=== PATIENT | female | born 1970 | race Caucasian/White ===

== ENCOUNTER 2020-11-16 23:58 | Emergency (ER) | payer BC, SELFPAY ==
[2020-11-17 00:07] VITALS: BP 182/94; PULSE 86; RESP 20; TEMP 36.1; O2SAT 96; BMI 26.4
--- NOTE | 2020-11-17 00:15 | CTR_ITS ---
PROCEDURE INFORMATION: Exam: CT Abdomen And Pelvis Without Contrast Exam date and time: 11/17/2020 1:33 AM Age: 50 years old Clinical indication: Abdominal pain; Flank; Left; Prior surgery; Surgery date: 6+ months; Surgery type: Hyst; Additional info: L flank pain TECHNIQUE: Imaging protocol: Computed tomography of the abdomen and pelvis without contrast. Radiation optimization: All CT scans at this facility use at least one of these dose optimization techniques: automated exposure control; mA and/or kV adjustment per patient size (includes targeted exams where dose is matched to clinical indication); or iterative reconstruction. COMPARISON: No relevant prior studies available. RADIATION DOSE METRICS: Total DLP (mGy-cm): 1603.05 FINDINGS: Liver: Normal. No mass. Gallbladder and bile ducts: Numerous gallstones are present. There are no inflammatory changes present to suggest cholecystitis. Pancreas: Normal. No ductal dilation. Spleen: Normal. No splenomegaly. Adrenal glands: Normal. No mass. Kidneys and ureters: There is a 2.2 mm nonobstructing lower pole renal calculus seen on the right. There are some strandy and hazy opacities present within the left perinephric fascia possibly represents some mild inflammatory changes. Moderate hydronephrosis and hydroureter is seen on the left. There is a 3.8 mm partially obstructing distal left ureteral calculus at the level of the ureterovesical junction. Stomach and bowel: Unremarkable. No obstruction. No mucosal thickening. Appendix: The appendix is visualized and is normal in configuration. Intraperitoneal space: Unremarkable. No free air. No significant fluid collection. Vasculature: Unremarkable. No abdominal aortic aneurysm. Lymph nodes: Unremarkable. No enlarged lymph nodes. Urinary bladder: Unremarkable as visualized. Reproductive: Status post hysterectomy. Bones/joints: Severe loss of disc height and vacuum disc phenomenon seen at L5-S1 compatible with degenerative disc disease. Soft tissues: Unremarkable. CT/CT kidney stone [id number] IMPRESSION: 1. Partially obstructing 3.8 mm distal left ureteral calculus at the level of the ureterovesical junction. 2. Nonobstructing 2.2 mm renal calculus in the lower pole of the right kidney. 3. Numerous gallstones without evidence of cholecystitis Radiation Dose CTDIVOL = (mGy): DLP = 1603.05 (mGy-cm)
--- NOTE | 2020-11-17 00:15 | W.ED.ABDPA2 ---
HPI - Abdominal Pain General: Chief Complaint: Abdominal Pain Stated Complaint: back and abd pain Time Seen by Provider: 11/17/20 00:08 History of Present Illness: HPI narrative: 50-year-old female presents with sudden onset of left flank pain radiating into her belly at 10 PM. She is vomited 4 times. No fever. She is very uncomfortable on exam. She is has no history of prior kidney stone or belly surgery. No sick contacts. MD elicited complaint: flank pain Pertinent past history: none Onset (ago): hour(s) (2) Pain Consistency: constant Location: L flank Severity: severe Quality: stabbing Radiation: LLQ Migration to: no migration Exacerbating factors: nothing Relieving factors: nothing Associated Symptoms: Reports nausea and vomiting; Denies change in stool character, diarrhea, fever(s), hematochezia and hematuria Review of Systems Const: Denies: fever(s) Eyes: Denies: change in vision Card: Denies: chest pain or palpitations Resp: Denies: dyspnea, productive cough or non-productive cough GI: Reports: nausea and vomiting; Denies: diarrhea, change in stool character or hematochezia : Reports: flank pain; Denies: hematuria Neuro: Denies: headache(s) or confusion Physical Exam Const: GENERAL APPEARANCE: well developed, in distress and ill appearing ORIENTATION/CONSCIOUSNESS: Yes oriented to person, Yes oriented to place and Yes oriented to time HENMT: COMMON NORMALS: normocephalic, external ears normal and Normal external nose present HEAD & SCALP: normocephalic FACE & SINUS: normal facial exam NOSE: Normal external nose present and No nasal discharge present EXTERNAL EAR: Yes external ears normal Eye: COMMON NORMALS: Equal, round and reactive pupils present, EOMs intact bilaterally and conjunctivae normal EYELID: eyelids normal CONJUNCTIVA: Yes conjunctivae normal PUPIL: Yes Equal, round and reactive pupils present Neck/C-Spine: GENERAL: No tracheal deviation Chest: COMMONS NORMALS: normal inspection of the chest CHEST: No tenderness Resp: COMMON NORMALS: clear to auscultation bilaterally EFFORT & INSPECTION: No tachypneic, No respiratory distress, No retractions, No uses accessory muscles and No tracheal deviation AUSCULTATION: clear to auscultation bilaterally, no rhonchi, no wheezes and lung sounds not diminished Cardio: COMMON NORMALS: regular rate and regular rhythm RATE: regular rate RHYTHM: regular rhythm HEART SOUNDS: no murmurs PERIPHERAL PULSES: radial pulses present GI: INSPECTION: No abdominal distension AUSCULTATION: No Hyperactive bowel sounds present and No Hypoactive bowel sounds present PALPATION: No Guarding due to palpation present (GI) and No Rigid due to palpation PERCUSSION: no dullness to percussion and no tympanic to percussion : BLADDER/KIDNEY EXAM: Yes CVA tenderness on the left Back/Pelvis: GENERAL BACK: Yes CVA tenderness Neuro: SENSORIUM/ORIENTATION: Yes oriented to person, Yes oriented to place and Yes oriented to time Psych: COMMON NORMALS: mental status grossly normal Skin: COMMON NORMALS: no rashes or lesions noted GENERAL SKIN EXAM: no rashes or lesions noted Course ED course: 50-year-old female with significant left flank pain and vomiting. White blood cell count is 10.7. Potassium is down to 3.2. Bicarb level is 19. She is received a liter of fluid. CT renal stone protocol reveals a nearly 4 mm stone in her left UVJ producing hydronephrosis. It is partially obstructing. Renal function is normal. If her pain can be controllable, she will go home. Vital Signs: Vital signs: Vital Signs Temperature 96.9 F L 11/17/20 00:07 Pulse Rate 73 11/17/20 02:21 Respiratory Rate 18 11/17/20 02:21 Blood Pressure 122/67 11/17/20 02:21 Pulse Oximetry 99 11/17/20 02:21 MDM - Abdominal Pain Lab Data: Labs: Lab Results 11/17/20 11/17/20 11/17/20 Range/Units 00:10 00:10 02:54 WBC 10.7 H (4.0-10.0) 10^3/ uL RBC 4.70 (4.1-5.3) 10^6/u L Hgb 14.3 (11.5-15.3) g/dL Hct 40.5 (37.0-47.0) % MCV 86.2 (81-99) fL MCH 30.4 (28.0-34.0) pg MCHC 35.3 (30.0-36.0) g/dL RDW 11.9 L (12.1-15.1) % Plt Count 249 (130-400) 10^3/c mm MPV 9.9 (7.4-10.4) fL Neut % (Auto) 66.5 % Lymph % (Auto) 24.3 % [place] % (Auto) 5.3 % Eos % (Auto) 2.9 % Baso % (Auto) 0.7 % Neut # (Auto) 7.10 (1.8-7.7) 10^3/u L Lymph # (Auto) 2.6 (0.8-4.8) 10^3/u L [place] # (Auto) 0.6 (0.2-0.9) 10^3/u L Eos # (Auto) 0.3 (0.0-0.8) 10^3/u L Baso # (Auto) 0.1 (0.0-0.1) 10^3/u L Nucleated RBC % (a uto) 0 % Nucleated RBCs # 0.0 /100WBC Sodium 136 (136-145) mmol/L Potassium 3.2 L (3.5-5.1) mmol/L Chloride 102 (98-107) mmol/L Carbon Dioxide 19 L (22-29) mmol/L Anion Gap 18.2 (5-19) BUN 14 (6-20) mg/dL Creatinine 0.8 (0.5-0.9) mg/dL GFR Calculation 75.6 L (90-130) mL/min Glucose 168 H (65-115) mg/dL Calculated Osmolal ity 286 (285-295) mOsm/k g Calcium 9.3 (8.5-10.5) mg/dL Total Bilirubin 1.3 H (0.15-1.2) mg/dL AST 20 (0-32) U/L ALT 21 (0-33) U/L Alkaline Phosphata se 108 H (35-105) IU/L C-Reactive Protein 1.5 (0.0-4.9) mg/L Total Protein 7.2 (6.6-8.7) g/dL Albumin 4.3 (3.5-5.2) g/dL Globulin 2.9 (1.3-4.6) g/dL Lipase 27 (13-60) U/L Urine Color Yellow (Yellow) Urine Appearance Clear (CLEAR) Urine pH 7 (5-7) Ur Specific Gravit y 1.010 (1.005-1.030) Urine Protein Neg (Negative) Urine Glucose (UA) Trace H (Normal) Urine Ketones Negative (Negative) Urine Blood Neg (Negative) Urine Nitrate Negative (Negative) Urine Bilirubin Neg (Negative) Urine Urobilinogen Norm (Negative) mg/dL Ur Leukocyte Alicia ase Negative (Negative) Discharge Plan Discharge Patient Disposition: Home Clinical Impression: Ureterolithiasis Condition: Stable Prescriptions: New Zofran 4 mg tablet 4 mg PO Q6H PRN (Reason: nausea and vomiting) Qty: 10 RF: 0 ketorolac 10 mg tablet 10 mg PO TID PRN (Reason: pain) Qty: 10 RF: 0 Percocet 7.5-325 mg tablet 1 tab PO Q6H PRN (Reason: pain) Qty: 10 RF: 0 Discharge Orders: Discharge ED (Routine); Ordered 11/17/20 Ordered By: Carlitos Louie Referrals: Cornelius Park MD [Physician] - 1-3 days Discharge Diet: Advance as tolerated and Clear Liquid Discharge Activity: Increase activity as tolerated Patient Instructions: Kidney Stones (ED), Renal Colic (ED), Opioid Safety Activity Restrictions/Additional Instructions: Return for worsening pain despite treatment, fever greater than 100, vomiting liquids or medications despite treatment, other concerning symptoms. Call urology later this morning, for an appointment this week. Make sure to strain your urine for the stone. Coding Level of Care Code ED Fis[employer]ist for [employer]rag Fwd Exam Comprehensive
[2020-11-17 00:20] LABS: Basophils # 0.1 10^3/uL (0.0-0.1); Basophils % 0.7 %; Eosinophils # 0.3 10^3/uL (0.0-0.8); Eosinophils % 2.9 %; Hematocrit 40.5 % (37.0-47.0); Hemoglobin 14.3 g/dL (11.5-15.3); Lymphocytes # 2.6 10^3/uL (0.8-4.8); Lymphocytes % 24.3 %; Mean Corpuscular HGB Conc 35.3 g/dL (30.0-36.0); Mean Corpuscular Hemoglobin 30.4 pg (28.0-34.0); Mean Corpuscular Volume 86.2 fL (81-99); Mean Platelet Volume 9.9 fL (7.4-10.4); Monocytes # 0.6 10^3/uL (0.2-0.9); Monocytes % 5.3 %; Neutrophils % 66.5 %; Nucleated Red Blood Cells % 0 %; Platelet Count 249 10^3/cmm (130-400); Red Cell Distribution Width 11.9 % (12.1-15.1); White Blood Count 10.7 10^3/uL (4.0-10.0)
[2020-11-17] MEDS: HYDROmorphone 1 mg/mL INJ 1 mL IVP ×3 (00:22→01:16)
[2020-11-17] MEDS: ondansetron 2 mg/ML SDV 2 mL 8 MG IVP (00:24)
[2020-11-17] MEDS: sodium chloride 0.9% 1,000 ML 999 ML IV (00:25)
[2020-11-17 00:34] VITALS: BP 161/106; PULSE 73; RESP 24; O2SAT 100
[2020-11-17 00:42] LABS: Alanine Aminotransferase 21 U/L (0-33); Albumin Level 4.3 g/dL (3.5-5.2); Alkaline Phosphatase 108 IU/L (35-105); Anion Gap 18.2 (5-19); Aspartate Amino Transferase 20 U/L (0-32); Blood Urea Nitrogen 14 mg/dL (6-20); C Reactive Protein 1.5 mg/L (0.0-4.9); Calcium 9.3 mg/dL (8.5-10.5); Carbon Dioxide 19 mmol/L (22-29); Chloride 102 mmol/L (98-107); Globulin 2.9 g/dL (1.3-4.6); Glomerular Filtration Rate 75.6 mL/min (90-130); Glucose 168 mg/dL (65-115); Lipase 27 U/L (13-60); Osmolality Calculated 286 mOsm/kg (285-295); Potassium 3.2 mmol/L (3.5-5.1); Sodium 136 mmol/L (136-145); Total Bilirubin 1.3 mg/dL (0.15-1.2); Total Protein 7.2 g/dL (6.6-8.7)
[2020-11-17 01:16] VITALS: RESP 20; O2SAT 99
[2020-11-17 01:17] VITALS: BP 137/79; PULSE 70; RESP 23; O2SAT 100
[2020-11-17 01:58] VITALS: BP 115/58; PULSE 63; RESP 19; O2SAT 99
--- NOTE | 2020-11-17 02:08 | PC.NURSE ---
placed on 2 liters oxygen via nasal cannula
[2020-11-17] MEDS: ketorolac 30 mg/mL INJ IVP (02:14)
[2020-11-17 02:21] VITALS: BP 122/67; PULSE 73; RESP 18; O2SAT 99
[2020-11-17] MEDS: ondansetron 2 mg/ML SDV 2 mL 4 MG IVP (02:33)
[2020-11-17] MEDS: metoclopramide 5 mg/mL SDV 2 mL 10 MG IVP (02:45)
[2020-11-17 03:03] LABS: Add Urine Microscopic? NO
[2020-11-17 03:07] LABS: Bilirubin Urine Neg (Negative); Blood Urine Neg (Negative); Glucose Urine UA Trace (Normal); Ketones Urine Negative (Negative); Leukocyte Esterase Urine Negative (Negative); Nitrate Urine Negative (Negative); Protein Urine Neg (Negative); Urine Appearance Clear (CLEAR); Urine Color Yellow (Yellow); Urobilinogen Urine Norm (Negative); pH Urine 7 (5-7)
--- NOTE | 2020-11-17 03:42 | PC.NURSE ---
Patient taken off 2L oxygen and oxygen saturation on room air is between 95%-99%
== END 2020-11-17 03:43 | disposition home or self-care (01) ==
PROVIDERS: Emergency Provider Emergency Medicine
DX: N20.1 Calculus of ureter (principal)
CPT/HCPCS: 74176; 80053; 81003; 83690; 85025; 86140; 96360; 96361; 96374; 96375; 96376; 99284; J1170; J1885; J2405; J2765; J7030

== ENCOUNTER 2023-04-04 08:25 | Outpatient (CLI) | payer OTHER, SELFPAY ==
--- NOTE | 2023-04-04 08:35 | MM_ITS ---
WS: [id number] BILATERAL SCREENING DIGITAL TOMOSYNTHESIS MAMMOGRAM WITH CAD HISTORY: SCREENING COMPARISON: 11/17/2018 Bilateral CC and MLO views with tomosynthesis and synthetic mammography submitted. Computer aided det ection analyzed. Breast composition: There are scattered areas of fibroglandular density. No suspicious masses, microc alcifications or architectural distortion. Benign calcifications in each breast. MM/[place] [id number] IMPRESSION: BI-RADS: 2-Benign FOLLOW UP: 1 Year Follow-up
== END 2023-04-04 08:26 | disposition home or self-care (01) ==
PROVIDERS: PCP Nurse Practitioner; Visit Provider Nurse Practitioner
DX: Z12.31 Encounter for screening mammogram for malignant neoplasm of breast (principal)
CPT/HCPCS: 77063; 77067